=== PATIENT | male | born 1965 | race Caucasian/White ===

== ENCOUNTER 2017-08-11 11:12 | Emergency (ER) | payer OTHER ==
[~2017-08-11] VITALS: Ht 182.9 cm; Wt 79.5 kg
[~2017-08-11 11:12] MED LIST: FLONASE16 G1 BOTH NARES; GABAPENTIN300 MG PO; LEVOTHROID25 MCG PO; LEVOTHYROXINE25 MCG; LISINOPRIL20 MG; LISINOPRIL20 MG PO; RANITIDINE HCL300 M1 PO; SEROQUEL XR150 MG
[2017-08-11 11:51] LABS: BASOPHIL (%) 0.4 % (0-1); EOSINOPHIL (%) 1.1 % (0-5); EOSINOPHIL COUNT 0.1 K/uL (0-0.3); HEMATOCRIT 40.3 % (38.0-50.0); HEMOGLOBIN 13.7 G/DL (12.5-16.6); IMMATURE GRANULOCYTE (%) 0.7 % (0.0-0.7); LYMPHOCYTE (%) 15.6 % (15-42); LYMPHOCYTE COUNT 1.7 K/uL (1.0-2.8); MCH 30.5 PG (29.0-34.0); MCV 89.8 FL (86-99); MONOCYTE (%) 6.8 % (3-12); MONOCYTE COUNT 0.8 K/uL (0-0.8); NEUTROPHIL (%) 75.4 % (45-76); NEUTROPHIL COUNT 8.3 K/uL (1.8-6.4); PLATELET COUNT 262 K/uL (156-360); RBC DIS.WIDTH-CV 12.8 % (11.8-14.6); RBC DIS.WIDTH-SD 41.9 % (39-53); RED BLOOD COUNT 4.49 M/uL (4.00-5.50)
[2017-08-11 12:00] LABS: ALBUMIN 4.5 g/dL (3.2-4.8); CHLORIDE 105 mEq/L (99-109); POTASSIUM 4.7 mEq/L (3.7-5.4); SODIUM 137 mEq/L (136-147)
[2017-08-11 12:03] LABS: GLUCOSE 82 mg/dL (70-99); TOTAL PROTEIN 7.2 g/dL (6.4-8.3)
[2017-08-11 12:04] LABS: TOTAL BILIRUBIN 0.7 mg/dL (0.0-1.0)
[2017-08-11 12:05] LABS: SERUM ETHYL ALCOHOL < 10 mg/dL
[2017-08-11 12:06] LABS: CREATININE 0.9 mg/dL (0.6-1.3); GFR ESTIMATE (CALCULATED) > 59 mL/min/ (58.99-99999)
[2017-08-11 12:07] LABS: ALKALINE PHOSPHATASE 76 IU/L (3-129)
[2017-08-11 12:08] LABS: AST (GOT) 17 IU/L (2-34); DIRECT BILIRUBIN 0.3 mg/dL (0.0-0.3); UREA NITROGEN (BUN) 12 mg/dL (9-23)
[2017-08-11 12:10] LABS: ACETAMINOPHEN (TYLENOL) < 10 mcg/mL (10-30); ALT (GPT) 22 IU/L (3-49); SALICYLATE < 5.0 MG/DL (15-30)
[2017-08-11 14:23] LABS: APPEARANCE CLEAR ((CLEAR)); BILIRUBIN NEGATIVE; BLOOD NEGATIVE; COLOR STRAW ((YELLOW)); GLUCOSE (STRIP) 50; KETONES NEGATIVE; LEUKOCYTES NEGATIVE; NITRITE NEGATIVE; PROTEIN (STRIP) NEGATIVE; SPECIFIC GRAVITY 1.008 (1.000-1.030); UROBILINOGEN 0.2 MG/DL (0.2-1.0)
[2017-08-11 14:34] LABS: AMPHETAMINE NEGATIVE (500 ng/mL); BARBITURATES NEGATIVE (200 ng/mL); BENZODIAZEPINES PRESUMPTIVE POSITIVE (150 ng/mL); BUPRENORPHINE NEGATIVE (10 ng/mL); COCAINE NEGATIVE (150 ng/mL); METHADONE NEGATIVE (200 ng/mL); METHAMPHETAMINE NEGATIVE (500 ng/mL); OPIATES (MORPHINE) PRESUMPTIVE POSITIVE (100 ng/mL); OXYCODONE NEGATIVE (100 ng/mL); PHENCYCLIDINE NEGATIVE (25 ng/mL); PROPOXYPHENE NEGATIVE (300 ng/mL); THC CANNABINOIDS NEGATIVE (50 ng/mL); TRICYCLIC ANTIDEPRESSANTS NEGATIVE (300 ng/mL)
[2017-08-11 15:28] LABS: BENZODIAZEPINES, URINE SCREEN POSITIVE (200 ng/mL)
[2017-08-11 15:54] VITALS: BP 103/77
== END 2017-08-11 15:56 | disposition home or self-care (01) ==
LOC: EME 11:12
PROVIDERS: Emergency Medicine
DX: T40.1X1A Poisoning by heroin, accidental (unintentional), initial encounter (principal); F31.9 Bipolar disorder, unspecified; I10 Essential (primary) hypertension; F17.200 Nicotine dependence, unspecified, uncomplicated; Z88.0 Allergy status to penicillin
CPT/HCPCS: 80048; 80076; 81003; 84999; 85025; 90839; 99281; 99285; G0480; J2310